=== PATIENT | female | born 1960 | race Caucasian/White ===

== ENCOUNTER → 2022-06-13 | Outpatient (CLI) | payer OTHER | LOC: M WUC 14:35 | PROVIDERS: ATTEND Internal Medicine | DX: R05.9 Cough, unspecified (principal); R06.00 Dyspnea, unspecified; R91.8 Other nonspecific abnormal finding of lung field ==

== ENCOUNTER → 2022-06-19 | Outpatient (CLI) | payer OTHER | LOC: M PLAIMG 10:24 | PROVIDERS: ATTEND Internal Medicine | DX: R06.00 Dyspnea, unspecified (principal); R05.9 Cough, unspecified; J47.9 Bronchiectasis, uncomplicated; R91.8 Other nonspecific abnormal finding of lung field; J84.10 Pulmonary fibrosis, unspecified ==

== ENCOUNTER → 2022-08-02 | Outpatient (REF) | payer OTHER | PROVIDERS: ATTEND Internal Medicine | DX: R09.81 Nasal congestion (principal); R06.02 Shortness of breath; Z20.822 Contact with and (suspected) exposure to COVID-19 ==

== ENCOUNTER 2022-10-11 12:36 | Inpatient (IN) | payer OTHER ==
[~2022-10-11] VITALS: Ht 144.8 cm; Wt 154.5 kg
[2022-10-11 00:29] VITALS: BP_SYST 130; BP_SYST 139; BP_SYST 141; BP_DIAS 59; BP_DIAS 71; BP_DIAS 94
[2022-10-11 13:40] LABS: BASO # 0.1 10^3/uL (0.0-0.2); BASO % 0.7 % (0.0-1.0); EOS # 0.4 10^3/uL (0.0-0.5); EOS % 3.2 % (0.0-3.0); HEMATOCRIT 44.1 % (36.0-47.0); HEMOGLOBIN 13.7 g/dl (12.0-15.5); LYMPH # 3.1 10^3/uL (1.5-5.0); MEAN CORPUSCULAR HEMOGLOBIN 26.9 pg (27.0-33.0); MEAN CORPUSCULAR HGB CONC 31.1 g/dl (32.0-36.5); MEAN CORPUSCULAR VOLUME 86.6 fl (80.0-96.0); MONO # 0.7 10^3/uL (0.0-0.8); MONO % 5.8 % (2.0-8.0); NEUTROPHILS # 7.9 10^3/uL (1.5-8.5); NEUTROPHILS % 63.9 % (36.0-66.0); PLATELET COUNT, AUTOMATED 231 10^3/uL (150-450); RED BLOOD COUNT 5.09 10^6/uL (4.00-5.40); WHITE BLOOD COUNT 12.3 10^3/uL (4.0-10.0)
[2022-10-11 14:06] LABS: LIPASE 21 U/L (12-53)
[2022-10-11 14:08] LABS: ALBUMIN 3.1 G/DL (3.2-5.2); ALKALINE PHOSPHATASE 75 U/L (46-116); ALT/SGPT 20 U/L (7.0-40); AST/SGOT 13 U/L (<34); BILIRUBIN,DIRECT < 0.1 MG/DL (<0.4); BILIRUBIN,TOTAL 0.2 MG/DL (0.3-1.2); TOTAL PROTEIN 6.9 G/DL (5.7-8.2)
[2022-10-11] MEDS ORDERED: NS 500 ML IV ONE (14:10)
[2022-10-11] MEDS ORDERED: DEXTROSE 50% 50ML SYRINGE IV STA (15:19)
[2022-10-11] MEDS ORDERED: ONDANSETRON 4MG 2ML VIAL IV ONE (15:20)
[2022-10-11] MEDS ORDERED: MOM 30ML SUSPENSION UDC PO PRN (17:15)
[2022-10-11] MEDS ORDERED: ACETAMINOPHEN TAB 650MG DOSE (2X325MG) PO PRN (17:15)
[2022-10-11] MEDS ORDERED: SYMB16INH INH (17:54)
[2022-10-11] MEDS ORDERED: MONT10TA97 PO (17:54)
[2022-10-11] MEDS ORDERED: OMEG10002 PO (17:54)
[2022-10-11] MEDS ORDERED: SUCR1TA PO (17:54)
[2022-10-11] MEDS ORDERED: VENTAER INH (17:54)
[2022-10-11] MEDS ORDERED: LOSA25TA13 PO (17:54)
[2022-10-11] MEDS ORDERED: NOVO1INJ4 SC (17:54)
[2022-10-11] MEDS ORDERED: METH-1165 PO (17:54)
[2022-10-11] MEDS ORDERED: GABA-1171 PO (17:54)
[2022-10-11] MEDS ORDERED: ATOR1TAB19 PO (17:54)
[2022-10-11] MEDS ORDERED: OMEP-173 PO (17:54)
[2022-10-11] MEDS ORDERED: PROBCAP14 PO (17:54)
[2022-10-11] MEDS ORDERED: NOVO1INJ18 SC (17:54)
[2022-10-11] MEDS ORDERED: MUCI600T31 PO (17:54)
[2022-10-11] MEDS ORDERED: TRAM50TA2 PO (17:54)
[2022-10-11] MEDS ORDERED: GNP625TA PO (17:54)
[2022-10-11] MEDS ORDERED: ONDA8TAB8 PO (17:54)
[2022-10-11] MEDS ORDERED: MM S100C PO (17:54)
[2022-10-11] MEDS ORDERED: NYST1CRE15 TOP (17:54)
[2022-10-11] MEDS ORDERED: ACET-683 PO (17:54)
[2022-10-11] MEDS ORDERED: SPIR-10 PO (17:54)
[2022-10-11] MEDS ORDERED: MECL-86 PO (17:54)
[2022-10-11] MEDS ORDERED: VITA500C24 PO (17:54)
[2022-10-11] MEDS ORDERED: CINN500C15 PO (17:54)
[2022-10-11] MEDS ORDERED: D3 M1CAP2 PO (17:54)
[2022-10-11] MEDS ORDERED: JARD1TAB PO (17:54)
[2022-10-11] MEDS ORDERED: BENA25CA4 PO (17:54)
[2022-10-11] MEDS ORDERED: CETI10CA2 PO (17:54)
[2022-10-11] MEDS ORDERED: MAGN400T35 PO (17:54)
[2022-10-11] MEDS ORDERED: FURO40TA2 PO (17:54)
[2022-10-11] MEDS ORDERED: HOME MED LIST COMPLETE! XX SCH (17:55)
[2022-10-11 18:31] LABS: INR 0.97; PARTIAL THROMBOPLASTIN TIME 23.7 SECONDS (24.8-34.2); PROTHROMBIN TIME 13.1 SECONDS (12.5-14.5)
[2022-10-11] MEDS ORDERED: MECLIZINE 25 MG TABLET PO PRN (19:15)
[2022-10-11] MEDS ORDERED: MYCOLOG CREAM 15GM (NYSTATIN/TRIAMCINOLONE) TOP PRN (19:15)
[2022-10-11] MEDS ORDERED: GLUCAGON INJ 1MG VIAL SC PRN (19:15)
[2022-10-11] MEDS ORDERED: diphenhydrAMINE 25MG CAP PO PRN (19:15)
[2022-10-11] MEDS ORDERED: GLUCOSE 4GM CHEW TABLET PO PRN (19:15)
[2022-10-11] MEDS ORDERED: methocarbamoL 750 MG TAB PO PRN (19:15)
[2022-10-11] MEDS ORDERED: guaiFENesin ER 600 MG TAB PO PRN (19:15)
[2022-10-11] MEDS ORDERED: ALBUTEROL 90 MCG/ACT 8GM HFA INHALER INH PRN (19:15)
[2022-10-11] MEDS ORDERED: DEXTROSE 50% 50ML SYRINGE IV PRN (19:15)
[2022-10-11] MEDS ORDERED: ONDANSETRON 4MG ORAL DISINTEGRATING TAB PO PRN (19:15)
[2022-10-11] MEDS ORDERED: OMEPRAZOLE 20MG CAP PO PRN (19:15)
[2022-10-11] MEDS ORDERED: HumuLIN N INSULIN (NovoLIN N) PER UNIT SC SCH (21:00)
[2022-10-11] MEDS ORDERED: INSULIN LISPRO (NovoLOG) PER UNIT SC SCH (21:00)
[2022-10-11] MEDS ORDERED: HumuLIN (NovoLIN)70/30 INSULIN INJ PER UNIT SC SCH (21:00)
[2022-10-11] MEDS ORDERED: GABAPENTIN 100 MG CAP PO SCH (21:00)
[2022-10-11 21:22] VITALS: BP 130/62; TEMP 97.7; O2SAT 98
[2022-10-11] MEDS: LR 1,000 ML IV SCH (22:04)
[2022-10-11] MEDS: DOCUSATE SODIUM 100MG CAPSULE PO SCH (22:05)
[2022-10-11] MEDS: traMADol 50 MG TAB PO PRN (22:07)
[2022-10-11 22:22] LABS: HEMATOCRIT 44.5 % (36.0-47.0); HEMOGLOBIN 13.5 g/dl (12.0-15.5)
[2022-10-12] MEDS ORDERED: PERCOCET 5MG/325MG TAB PO ONE
[2022-10-12 00:29] VITALS: BP_SYST 130; BP_SYST 139; BP_SYST 141; BP_DIAS 59; BP_DIAS 71; BP_DIAS 94
[2022-10-12] MEDS: LR 1,000 ML IV SCH (05:04)
[2022-10-12 05:43] VITALS: BP 131/52; TEMP 97.5; O2SAT 96
[2022-10-12 06:39] LABS: HEMATOCRIT 41.9 % (36.0-47.0); HEMOGLOBIN 12.7 g/dl (12.0-15.5); MEAN CORPUSCULAR HEMOGLOBIN 26.8 pg (27.0-33.0); MEAN CORPUSCULAR HGB CONC 30.3 g/dl (32.0-36.5); MEAN CORPUSCULAR VOLUME 88.6 fl (80.0-96.0); PLATELET COUNT, AUTOMATED 215 10^3/uL (150-450); RED BLOOD COUNT 4.73 10^6/uL (4.00-5.40); WHITE BLOOD COUNT 9.2 10^3/uL (4.0-10.0)
[2022-10-12 06:46] LABS: BLOOD UREA NITROGEN 16 MG/DL (9-23); CALCIUM LEVEL 7.9 MG/DL (8.3-10.6); CARBON DIOXIDE LEVEL 28 MMOL/L (20-31); CHLORIDE LEVEL 108 MMOL/L (98-107); GLOMERULAR FILTRATION RATE > 60.0 (>45); GLUCOSE, FASTING 177 MG/DL (74-106); POTASSIUM SERUM 4.6 MMOL/L (3.5-5.1); SODIUM LEVEL 140 MMOL/L (136-145)
[2022-10-12] MEDS: SYMBICORT 160/4.5MCG INHALER 6GM INH SCH ×2 (07:52→20:06)
[2022-10-12] MEDS: DOCUSATE SODIUM 100MG CAPSULE PO SCH (08:27)
[2022-10-12] MEDS: INSULIN LISPRO (NovoLOG) PER UNIT SC SCH ×3 (08:28→17:30)
[2022-10-12] MEDS ORDERED: MAGNESIUM OXIDE 400MG TAB (MAG-OX) PO SCH (09:00)
[2022-10-12] MEDS ORDERED: HumuLIN N INSULIN (NovoLIN N) PER UNIT SC SCH (09:00)
[2022-10-12] MEDS ORDERED: HumuLIN (NovoLIN)70/30 INSULIN INJ PER UNIT SC SCH (09:00)
[2022-10-12] MEDS ORDERED: ATORVASTATIN 10 MG TAB PO SCH (09:00)
[2022-10-12] MEDS ORDERED: OMEGA-3 1000MG CAPSULE PO SCH (09:00)
[2022-10-12] MEDS ORDERED: FIBER-CON 625 MG TAB PO SCH (09:00)
[2022-10-12] MEDS ORDERED: LIDOCAINE 5% (LIDODERM) PATCH TD SCH ×2 (09:00)
[2022-10-12] MEDS ORDERED: ASCORBIC ACID 500 MG TAB PO SCH (09:00)
[2022-10-12] MEDS ORDERED: MONTELUKAST 10 MG TAB PO SCH (09:00)
[2022-10-12] MEDS: traMADol 50 MG TAB PO PRN (09:33)
[2022-10-12] MEDS ORDERED: GOLYTELY SOLN 4000 ML BTL PO ONE (12:00)
[2022-10-12 14:00] VITALS: BP 145/68; TEMP 97.7; O2SAT 96
[2022-10-12] MEDS ORDERED: BISACODYL 10MG SUPP PR ONE (17:00)
[2022-10-12 21:00] VITALS: BP 144/66; TEMP 97.7; O2SAT 97
[2022-10-12 21:31] LABS: HEMATOCRIT 40.4 % (36.0-47.0); HEMOGLOBIN 12.4 g/dl (12.0-15.5)
[2022-10-12 22:00] VITALS: BP 141/71
[2022-10-13] MEDS ORDERED: ONDANSETRON 4MG 2ML VIAL IV PRN (00:45)
[2022-10-13 06:00] VITALS: BP 143/66; TEMP 97.5; O2SAT 97
[2022-10-13 06:23] LABS: HEMATOCRIT 40.3 % (36.0-47.0); HEMOGLOBIN 12.1 g/dl (12.0-15.5); MEAN CORPUSCULAR HEMOGLOBIN 26.5 pg (27.0-33.0); MEAN CORPUSCULAR VOLUME 88.4 fl (80.0-96.0); PLATELET COUNT, AUTOMATED 190 10^3/uL (150-450); RED BLOOD COUNT 4.56 10^6/uL (4.00-5.40); WHITE BLOOD COUNT 8.9 10^3/uL (4.0-10.0)
[2022-10-13 06:46] LABS: BLOOD UREA NITROGEN 10 MG/DL (9-23); CALCIUM LEVEL 8.5 MG/DL (8.3-10.6); CARBON DIOXIDE LEVEL 29 MMOL/L (20-31); CHLORIDE LEVEL 106 MMOL/L (98-107); CREATININE FOR GFR 0.65 MG/DL (0.55-1.30); GLOMERULAR FILTRATION RATE > 60.0 (>45); GLUCOSE, FASTING 204 MG/DL (74-106); POTASSIUM SERUM 4.4 MMOL/L (3.5-5.1); SODIUM LEVEL 141 MMOL/L (136-145)
[2022-10-13] MEDS ORDERED: MOM 30ML SUSPENSION UDC PO PRN (08:15)
[2022-10-13] MEDS ORDERED: ACETAMINOPHEN TAB 650MG DOSE (2X325MG) PO PRN (08:15)
[2022-10-13] MEDS ORDERED: MYCOLOG CREAM 15GM (NYSTATIN/TRIAMCINOLONE) TOP PRN (08:15)
[2022-10-13] MEDS ORDERED: guaiFENesin ER 600 MG TAB PO PRN (08:15)
[2022-10-13] MEDS ORDERED: ALBUTEROL 90 MCG/ACT 8GM HFA INHALER INH PRN (08:15)
[2022-10-13] MEDS ORDERED: methocarbamoL 750 MG TAB PO PRN (08:15)
[2022-10-13] MEDS ORDERED: OMEPRAZOLE 20MG CAP PO PRN (08:15)
[2022-10-13] MEDS ORDERED: MECLIZINE 25 MG TABLET PO PRN (08:15)
[2022-10-13] MEDS ORDERED: GLUCOSE 4GM CHEW TABLET PO PRN (08:20)
[2022-10-13] MEDS ORDERED: DEXTROSE 50% 50ML SYRINGE IV PRN (08:20)
[2022-10-13] MEDS ORDERED: GLUCAGON INJ 1MG VIAL SC PRN (08:20)
[2022-10-13] MEDS ORDERED: ONDANSETRON 4MG ORAL DISINTEGRATING TAB PO PRN (08:30)
[2022-10-13] MEDS: SYMBICORT 160/4.5MCG INHALER 6GM INH SCH ×2 (08:33→20:00)
[2022-10-13] MEDS: DOCUSATE SODIUM 100MG CAPSULE PO SCH ×2 (09:00→21:00)
[2022-10-13] MEDS: MAGNESIUM OXIDE 400MG TAB (MAG-OX) PO SCH (09:00)
[2022-10-13] MEDS: MONTELUKAST 10 MG TAB PO SCH (09:00)
[2022-10-13] MEDS: ATORVASTATIN 10 MG TAB PO SCH (09:00)
[2022-10-13] MEDS: FIBER-CON 625 MG TAB PO SCH (09:00)
[2022-10-13] MEDS: ASCORBIC ACID 500 MG TAB PO SCH (09:00)
[2022-10-13] MEDS: OMEGA-3 1000MG CAPSULE PO SCH (09:00)
[2022-10-13] MEDS: LIDOCAINE 5% (LIDODERM) PATCH TD SCH ×2 (09:44→09:45)
[2022-10-13] MEDS: ONDANSETRON 4MG ORAL DISINTEGRATING TAB PO PRN ×3 (09:57→21:31)
[2022-10-13] MEDS ORDERED: FLUBLOK(EGG FREE)(QUAD)INFLUENZA VACC 0.5ML SYRINGE 18YRS & OLDER As Ordered ONE (10:52)
[2022-10-13] MEDS: HumuLIN (NovoLIN)70/30 INSULIN INJ PER UNIT SC SCH ×2 (11:54→21:59)
[2022-10-13] MEDS: INSULIN LISPRO (NovoLOG) PER UNIT SC SCH ×3 (11:54→21:00)
[2022-10-13 14:00] VITALS: BP 141/68; TEMP 97.5; O2SAT 97
[2022-10-13] MEDS ORDERED: LIDOCAINE 2% 100MG/5ML SDV (FOR ANES.) As Ordered ONE (19:56)
[2022-10-13] MEDS ORDERED: propofoL 200 MG/20 ML VIAL As Ordered ONE ×2 (19:56→20:03)
[2022-10-13 21:00] VITALS: BP 142/72; TEMP 97.7; O2SAT 92
[2022-10-13] MEDS: GABAPENTIN 100 MG CAP PO SCH (21:00)
[2022-10-13 21:30] VITALS: BP 113/71; TEMP 97.9; O2SAT 92
[2022-10-13 22:00] VITALS: BP 122/70; TEMP 98; O2SAT 94
[2022-10-13 23:00] VITALS: BP 154/76; TEMP 97.9; O2SAT 92
[2022-10-14] VITALS (8 sets, daily range): BP systolic 133–156; BP diastolic 66–76; TEMP 97.7–98.7; O2SAT 91–95
[2022-10-14] MEDS ORDERED: SODIUM CHLORIDE NASAL 0.65% SPRAY BTL (OCEAN) PRN (00:55)
[2022-10-14] MEDS: diphenhydrAMINE 25MG CAP PO PRN (01:30)
[2022-10-14 06:09] LABS: HEMATOCRIT 41.1 % (36.0-47.0); HEMOGLOBIN 12.3 g/dl (12.0-15.5); MEAN CORPUSCULAR HEMOGLOBIN 26.6 pg (27.0-33.0); MEAN CORPUSCULAR HGB CONC 29.9 g/dl (32.0-36.5); PLATELET COUNT, AUTOMATED 187 10^3/uL (150-450); RED BLOOD COUNT 4.62 10^6/uL (4.00-5.40); WHITE BLOOD COUNT 10.7 10^3/uL (4.0-10.0)
[2022-10-14 06:32] LABS: BLOOD UREA NITROGEN 6 MG/DL (9-23); CALCIUM LEVEL 8.6 MG/DL (8.3-10.6); CARBON DIOXIDE LEVEL 28 MMOL/L (20-31); CHLORIDE LEVEL 107 MMOL/L (98-107); CREATININE FOR GFR 0.65 MG/DL (0.55-1.30); GLOMERULAR FILTRATION RATE > 60.0 (>45); GLUCOSE, FASTING 144 MG/DL (74-106); SODIUM LEVEL 141 MMOL/L (136-145)
[2022-10-14] MEDS: SYMBICORT 160/4.5MCG INHALER 6GM INH SCH ×3 (08:00→19:16)
[2022-10-14] MEDS: FIBER-CON 625 MG TAB PO SCH (09:31)
[2022-10-14] MEDS: MONTELUKAST 10 MG TAB PO SCH (09:32)
[2022-10-14] MEDS: MAGNESIUM OXIDE 400MG TAB (MAG-OX) PO SCH (09:32)
[2022-10-14] MEDS: OMEGA-3 1000MG CAPSULE PO SCH (09:32)
[2022-10-14] MEDS: DOCUSATE SODIUM 100MG CAPSULE PO SCH ×2 (09:32→21:39)
[2022-10-14] MEDS: ATORVASTATIN 10 MG TAB PO SCH (09:32)
[2022-10-14] MEDS: INSULIN LISPRO (NovoLOG) PER UNIT SC SCH ×4 (09:32→21:40)
[2022-10-14] MEDS: ASCORBIC ACID 500 MG TAB PO SCH (09:32)
[2022-10-14] MEDS: LIDOCAINE 5% (LIDODERM) PATCH TD SCH ×2 (09:33)
[2022-10-14] MEDS: HumuLIN (NovoLIN)70/30 INSULIN INJ PER UNIT SC SCH ×2 (09:33→21:40)
[2022-10-14] MEDS: traMADol 50 MG TAB PO PRN (12:08)
[2022-10-14] MEDS: ONDANSETRON 4MG ORAL DISINTEGRATING TAB PO PRN (12:09)
[2022-10-14] MEDS: SPIRONOLACTONE 12.5MG PER 1/2 TABLET PO SCH (12:09)
[2022-10-14] MEDS: SUCRALFATE 1 GM TAB PO SCH ×2 (12:09→17:48)
[2022-10-14] MEDS: LOSARTAN 25 MG TAB PO SCH (12:09)
[2022-10-14] MEDS: FUROSEMIDE 40 MG TAB PO SCH ×2 (12:09→20:08)
[2022-10-14] MEDS: RIVAROXABAN 10MG TAB (XARELTO) PO SCH ×2 (17:48→17:50)
[2022-10-14] MEDS: GABAPENTIN 100 MG CAP PO SCH (20:08)
[2022-10-15 05:28] VITALS: BP 135/72; TEMP 97.7; O2SAT 91
[2022-10-15 06:48] LABS: HEMATOCRIT 39.4 % (36.0-47.0); HEMOGLOBIN 11.9 g/dl (12.0-15.5); MEAN CORPUSCULAR HEMOGLOBIN 26.7 pg (27.0-33.0); MEAN CORPUSCULAR HGB CONC 30.2 g/dl (32.0-36.5); MEAN CORPUSCULAR VOLUME 88.5 fl (80.0-96.0); PLATELET COUNT, AUTOMATED 171 10^3/uL (150-450); RED BLOOD COUNT 4.45 10^6/uL (4.00-5.40); WHITE BLOOD COUNT 10.6 10^3/uL (4.0-10.0)
[2022-10-15 07:17] LABS: BLOOD UREA NITROGEN 9 MG/DL (9-23); CALCIUM LEVEL 8.1 MG/DL (8.3-10.6); CARBON DIOXIDE LEVEL 29 MMOL/L (20-31); CHLORIDE LEVEL 107 MMOL/L (98-107); CREATININE FOR GFR 0.67 MG/DL (0.55-1.30); GLOMERULAR FILTRATION RATE > 60.0 (>45); GLUCOSE, FASTING 221 MG/DL (74-106); POTASSIUM SERUM 3.9 MMOL/L (3.5-5.1); SODIUM LEVEL 143 MMOL/L (136-145)
[2022-10-15] MEDS: SYMBICORT 160/4.5MCG INHALER 6GM INH SCH ×2 (07:22→20:13)
[2022-10-15] MEDS: HumuLIN (NovoLIN)70/30 INSULIN INJ PER UNIT SC SCH ×2 (07:52→21:50)
[2022-10-15] MEDS: MAGNESIUM OXIDE 400MG TAB (MAG-OX) PO SCH (07:53)
[2022-10-15] MEDS: MONTELUKAST 10 MG TAB PO SCH (07:53)
[2022-10-15] MEDS: INSULIN LISPRO (NovoLOG) PER UNIT SC SCH ×4 (07:53→21:49)
[2022-10-15] MEDS: FIBER-CON 625 MG TAB PO SCH (07:53)
[2022-10-15] MEDS: SUCRALFATE 1 GM TAB PO SCH ×3 (07:53→17:16)
[2022-10-15] MEDS: DOCUSATE SODIUM 100MG CAPSULE PO SCH ×2 (07:53→21:46)
[2022-10-15] MEDS: OMEGA-3 1000MG CAPSULE PO SCH (07:54)
[2022-10-15] MEDS: ATORVASTATIN 10 MG TAB PO SCH (07:54)
[2022-10-15] MEDS: SPIRONOLACTONE 12.5MG PER 1/2 TABLET PO SCH (07:54)
[2022-10-15] MEDS: LOSARTAN 25 MG TAB PO SCH (07:54)
[2022-10-15] MEDS: FUROSEMIDE 40 MG TAB PO SCH ×2 (07:54→14:13)
[2022-10-15] MEDS: ASCORBIC ACID 500 MG TAB PO SCH (07:54)
[2022-10-15] MEDS: LIDOCAINE 5% (LIDODERM) PATCH TD SCH ×2 (07:55)
[2022-10-15] MEDS: RIVAROXABAN 10MG TAB (XARELTO) PO SCH (17:16)
[2022-10-15] MEDS: GABAPENTIN 100 MG CAP PO SCH (21:00)
[2022-10-15] MEDS: traMADol 50 MG TAB PO PRN (21:48)
[2022-10-16 06:00] VITALS: BP 156/70; TEMP 96.7; O2SAT 97
[2022-10-16 06:09] LABS: HEMATOCRIT 39.3 % (36.0-47.0); MEAN CORPUSCULAR HGB CONC 30.5 g/dl (32.0-36.5); MEAN CORPUSCULAR VOLUME 88.5 fl (80.0-96.0); PLATELET COUNT, AUTOMATED 199 10^3/uL (150-450); RED BLOOD COUNT 4.44 10^6/uL (4.00-5.40); WHITE BLOOD COUNT 10.9 10^3/uL (4.0-10.0)
[2022-10-16 06:39] LABS: BLOOD UREA NITROGEN 10 MG/DL (9-23); CALCIUM LEVEL 8.5 MG/DL (8.3-10.6); CARBON DIOXIDE LEVEL 30 MMOL/L (20-31); CHLORIDE LEVEL 105 MMOL/L (98-107); CREATININE FOR GFR 0.64 MG/DL (0.55-1.30); GLOMERULAR FILTRATION RATE > 60.0 (>45); GLUCOSE, FASTING 170 MG/DL (74-106); POTASSIUM SERUM 3.6 MMOL/L (3.5-5.1); SODIUM LEVEL 140 MMOL/L (136-145)
[2022-10-16] MEDS: traMADol 50 MG TAB PO PRN ×2 (06:47→14:08)
[2022-10-16] MEDS: SYMBICORT 160/4.5MCG INHALER 6GM INH SCH ×2 (07:58→20:42)
[2022-10-16] MEDS: OMEGA-3 1000MG CAPSULE PO SCH (08:39)
[2022-10-16] MEDS: FUROSEMIDE 40 MG TAB PO SCH ×2 (08:39→14:08)
[2022-10-16] MEDS: ATORVASTATIN 10 MG TAB PO SCH (08:39)
[2022-10-16] MEDS: DOCUSATE SODIUM 100MG CAPSULE PO SCH ×2 (08:39→21:24)
[2022-10-16] MEDS: MAGNESIUM OXIDE 400MG TAB (MAG-OX) PO SCH (08:39)
[2022-10-16] MEDS: SUCRALFATE 1 GM TAB PO SCH ×3 (08:39→16:44)
[2022-10-16] MEDS: MONTELUKAST 10 MG TAB PO SCH (08:40)
[2022-10-16] MEDS: LOSARTAN 25 MG TAB PO SCH (08:40)
[2022-10-16] MEDS: ASCORBIC ACID 500 MG TAB PO SCH (08:41)
[2022-10-16] MEDS: SPIRONOLACTONE 12.5MG PER 1/2 TABLET PO SCH (08:41)
[2022-10-16] MEDS: FIBER-CON 625 MG TAB PO SCH (08:41)
[2022-10-16] MEDS: INSULIN LISPRO (NovoLOG) PER UNIT SC SCH ×4 (08:43→21:26)
[2022-10-16] MEDS: LIDOCAINE 5% (LIDODERM) PATCH TD SCH ×2 (08:44)
[2022-10-16] MEDS: HumuLIN (NovoLIN)70/30 INSULIN INJ PER UNIT SC SCH ×2 (08:44→21:25)
[2022-10-16] MEDS: ONDANSETRON 4MG ORAL DISINTEGRATING TAB PO PRN (16:44)
[2022-10-16] MEDS: RIVAROXABAN 10MG TAB (XARELTO) PO SCH (18:00)
[2022-10-16] MEDS: GABAPENTIN 100 MG CAP PO SCH (21:00)
[2022-10-16] MEDS: diphenhydrAMINE 25MG CAP PO PRN (21:24)
[2022-10-17] MEDS: traMADol 50 MG TAB PO PRN (04:16)
[2022-10-17 05:41] VITALS: BP 106/60; TEMP 97.3; O2SAT 96
[2022-10-17] MEDS: SYMBICORT 160/4.5MCG INHALER 6GM INH SCH (07:51)
[2022-10-17 09:11] VITALS: BP 106/60
[2022-10-17] MEDS: FIBER-CON 625 MG TAB PO SCH (09:11)
[2022-10-17] MEDS: LOSARTAN 25 MG TAB PO SCH (09:11)
[2022-10-17] MEDS: INSULIN LISPRO (NovoLOG) PER UNIT SC SCH ×2 (09:12→12:00)
[2022-10-17] MEDS: FUROSEMIDE 40 MG TAB PO SCH (09:13)
[2022-10-17] MEDS: OMEGA-3 1000MG CAPSULE PO SCH (09:13)
[2022-10-17] MEDS: SPIRONOLACTONE 12.5MG PER 1/2 TABLET PO SCH (09:14)
[2022-10-17] MEDS: SUCRALFATE 1 GM TAB PO SCH ×2 (09:14→12:00)
[2022-10-17] MEDS: MONTELUKAST 10 MG TAB PO SCH (09:14)
[2022-10-17] MEDS: DOCUSATE SODIUM 100MG CAPSULE PO SCH (09:14)
[2022-10-17] MEDS: ATORVASTATIN 10 MG TAB PO SCH (09:14)
[2022-10-17] MEDS: MAGNESIUM OXIDE 400MG TAB (MAG-OX) PO SCH (09:15)
[2022-10-17] MEDS: ASCORBIC ACID 500 MG TAB PO SCH (09:15)
[2022-10-17] MEDS: LIDOCAINE 5% (LIDODERM) PATCH TD SCH ×2 (09:26)
[2022-10-17] MEDS: HumuLIN (NovoLIN)70/30 INSULIN INJ PER UNIT SC SCH (09:26)
== END 2022-10-17 12:09 | DRG 378 ==
LOC: M ED 12:36 → M ED INP 17:13 → M MSPAV 21:24 → UNDODISIN 10-12 21:11
PROVIDERS: ADMIT Student in an Organized Health Care Education/Training Program; ATTEND Internal Medicine
PROC: 0DBN7ZX Excision of Sigmoid Colon, Via Natural or Artificial Opening, Diagnostic (ICD-10-PCS; principal; 2022-10-13 18:30)
DX: K62.5 Hemorrhage of anus and rectum (principal); J96.11 Chronic respiratory failure with hypoxia; E78.5 Hyperlipidemia, unspecified; E66.9 Obesity, unspecified; I11.0 Hypertensive heart disease with heart failure; J45.909 Unspecified asthma, uncomplicated; E11.649 Type 2 diabetes mellitus with hypoglycemia without coma; I50.9 Heart failure, unspecified; Z79.4 Long term (current) use of insulin; M19.90 Unspecified osteoarthritis, unspecified site; E11.51 Type 2 diabetes mellitus with diabetic peripheral angiopathy without gangrene; Z99.81 Dependence on supplemental oxygen; F43.10 Post-traumatic stress disorder, unspecified; G43.909 Migraine, unspecified, not intractable, without status migrainosus; Z95.2 Presence of prosthetic heart valve; N93.9 Abnormal uterine and vaginal bleeding, unspecified; Z79.899 Other long term (current) drug therapy; Z88.0 Allergy status to penicillin; D12.5 Benign neoplasm of sigmoid colon; K64.8 Other hemorrhoids; I86.8 Varicose veins of other specified sites

== ENCOUNTER → 2022-11-15 | Outpatient (CLI) | payer OTHER ==
[~2022-11-15] MED LIST: ACET-683 PO; ATOR1TAB19 PO; BENA25CA4 PO; CETI10CA2 PO; CINN500C15 PO; D3 M1CAP2 PO; FURO40TA2 PO; GABA-1171 PO; GNP625TA PO; JARD1TAB PO; LOSA25TA13 PO; MAGN400T35 PO; MECL-86 PO; METH-1165 PO; MM S100C PO; MONT10TA97 PO; MUCI600T31 PO; NOVO1INJ18 SC; NOVO1INJ4 SC; NYST1CRE15 TOP; OMEG10002 PO; OMEP-173 PO; ONDA8TAB8 PO; PROBCAP14 PO; SPIR-10 PO; SUCR1TA PO; SYMB16INH INH; TRAM50TA2 PO; VENTAER INH; VITA500C24 PO
== END ==
LOC: M WHC 10:58
PROVIDERS: ATTEND Obstetrics & Gynecology
DX: N95.0 Postmenopausal bleeding (principal); D25.1 Intramural leiomyoma of uterus; N88.8 Other specified noninflammatory disorders of cervix uteri

== ENCOUNTER 2024-05-19 15:57 | Emergency (ER) | payer MEDICARE, OTHER ==
[~2024-05-19] VITALS: Ht 177.8 cm; Wt 132.3 kg
[~2024-05-19 15:57] MED LIST changes: +ONDA-284 PO; -ONDA8TAB8 PO
[2024-05-19 17:27] VITALS: TEMP 100
[2024-05-19 17:52] LABS: BASO # 0.1 10^3/uL (0.0-0.2); BASO % 1.1 % (0.0-1.0); EOS # 0.1 10^3/uL (0.0-0.5); EOS % 1.3 % (0.0-3.0); HEMOGLOBIN 14.2 g/dl (12.0-15.5); LYMPH # 1.4 10^3/uL (1.5-5.0); LYMPH % 17.9 % (24.0-44.0); MEAN CORPUSCULAR HGB CONC 30.9 g/dl (32.0-36.5); MEAN CORPUSCULAR VOLUME 84.2 fl (80.0-96.0); MONO # 0.6 10^3/uL (0.0-0.8); MONO % 7.3 % (2.0-8.0); NEUTROPHILS # 5.3 10^3/uL (1.5-8.5); NEUTROPHILS % 69.9 % (36.0-66.0); PLATELET COUNT, AUTOMATED 217 10^3/uL (150-450); RED BLOOD COUNT 5.46 10^6/uL (4.00-5.40); WHITE BLOOD COUNT 7.5 10^3/uL (4.0-10.0)
[2024-05-19 18:15] LABS: BLOOD UREA NITROGEN 19 MG/DL (9-23); CARBON DIOXIDE LEVEL 26 MMOL/L (20-31); CHLORIDE LEVEL 107 MMOL/L (98-107); CREATININE FOR GFR 0.59 MG/DL (0.55-1.30); GLOMERULAR FILTRATION RATE > 60.0 (>45); GLUCOSE, FASTING 129 MG/DL (74-106); POTASSIUM SERUM 4.4 MMOL/L (3.5-5.1); SODIUM LEVEL 142 MMOL/L (136-145)
[2024-05-19 18:18] LABS: INR 1.04; PARTIAL THROMBOPLASTIN TIME 26.1 SECONDS (24.8-34.2); PROTHROMBIN TIME 13.9 SECONDS (12.5-14.5)
[2024-05-19 18:26] LABS: LIPASE 18 U/L (12-53)
[2024-05-19 18:28] LABS: ALBUMIN 2.8 G/DL (3.2-5.2); ALKALINE PHOSPHATASE 60 U/L (35-104); ALT/SGPT 17 U/L (7.0-40); AST/SGOT 16 U/L (<34); BILIRUBIN,DIRECT < 0.1 MG/DL (<0.4); BILIRUBIN,TOTAL 0.3 MG/DL (0.3-1.2)
[2024-05-19] MEDS ORDERED: PROC1AER16 PR (20:27)
[2024-05-19 20:30] VITALS: BP 133/63; O2SAT 97
== END 2024-05-19 21:04 | disposition home or self-care (01) ==
LOC: M ED 15:57
DX: K62.5 Hemorrhage of anus and rectum (principal); I11.0 Hypertensive heart disease with heart failure; E11.9 Type 2 diabetes mellitus without complications; K64.9 Unspecified hemorrhoids; J44.9 Chronic obstructive pulmonary disease, unspecified; K21.9 Gastro-esophageal reflux disease without esophagitis; F41.9 Anxiety disorder, unspecified; F32.9 Major depressive disorder, single episode, unspecified; Z79.4 Long term (current) use of insulin; Z79.899 Other long term (current) drug therapy; Z88.0 Allergy status to penicillin; Z88.1 Allergy status to other antibiotic agents; Z88.8 Allergy status to other drugs, medicaments and biological substances; Z88.3 Allergy status to other anti-infective agents; Z91.013 Allergy to seafood

== ENCOUNTER 2024-05-24 16:15 | Inpatient (IN) | payer MEDICARE ==
[~2024-05-24] VITALS: Ht 147.3 cm; Wt 137.1 kg
[~2024-05-24 16:15] MED LIST changes: +PROC1AER16 PR
[2024-05-24 19:16] LABS: BASO # 0.1 10^3/uL (0.0-0.2); BASO % 0.7 % (0.0-1.0); EOS # 0.1 10^3/uL (0.0-0.5); EOS % 0.7 % (0.0-3.0); HEMATOCRIT 41.1 % (36.0-47.0); HEMOGLOBIN 13.1 g/dl (12.0-15.5); LYMPH % 11.3 % (24.0-44.0); MEAN CORPUSCULAR HEMOGLOBIN 26.1 pg (27.0-33.0); MEAN CORPUSCULAR HGB CONC 31.9 g/dl (32.0-36.5); MEAN CORPUSCULAR VOLUME 81.9 fl (80.0-96.0); MONO # 0.5 10^3/uL (0.0-0.8); MONO % 5.8 % (2.0-8.0); NEUTROPHILS # 6.8 10^3/uL (1.5-8.5); NEUTROPHILS % 79.3 % (36.0-66.0); PLATELET COUNT, AUTOMATED 229 10^3/uL (150-450); RED BLOOD COUNT 5.02 10^6/uL (4.00-5.40); WHITE BLOOD COUNT 8.6 10^3/uL (4.0-10.0)
[2024-05-24 19:31] LABS: INR 1.02; PARTIAL THROMBOPLASTIN TIME 26.3 SECONDS (24.8-34.2); PROTHROMBIN TIME 13.7 SECONDS (12.5-14.5)
[2024-05-24] MEDS: ONDANSETRON 4MG 2ML VIAL IV ONE (19:39)
[2024-05-24 19:43] LABS: LIPASE 20 U/L (12-53)
[2024-05-24 19:45] LABS: ALBUMIN 2.9 G/DL (3.2-5.2); ALKALINE PHOSPHATASE 63 U/L (35-104); ALT/SGPT 20 U/L (7.0-40); AST/SGOT 22 U/L (<34); BILIRUBIN,DIRECT 0.1 MG/DL (<0.4); BILIRUBIN,TOTAL 0.4 MG/DL (0.3-1.2); BLOOD UREA NITROGEN 14 MG/DL (9-23); CALCIUM LEVEL 8.8 MG/DL (8.3-10.6); CARBON DIOXIDE LEVEL 28 MMOL/L (20-31); CHLORIDE LEVEL 104 MMOL/L (98-107); CREATININE FOR GFR 0.53 MG/DL (0.55-1.30); GLOMERULAR FILTRATION RATE > 60.0 (>45); GLUCOSE, FASTING 90 MG/DL (74-106); SODIUM LEVEL 142 MMOL/L (136-145); TOTAL PROTEIN 6.9 G/DL (5.7-8.2)
[2024-05-24] MEDS: fentaNYL 100 MCG/2 ML INJECTION IV PRN (19:54)
[2024-05-24] MEDS: NORCO, ANEXSIA 5/325MG TABLET (HYDROcodone/ACETAMINOPHEN) PO ONE (22:54)
[2024-05-24 23:15] VITALS: O2SAT 98
[2024-05-25 01:21] LABS: APPEARANCE, URINE CLEAR (CLEAR); BACTERIA, URINE AUTO 1+ (NEGATIVE); BILIRUBIN, URINE AUTO NEGATIVE (NEGATIVE); BLOOD, URINE BLOOD NEGATIVE (NEGATIVE); COLOR, URINE YELLOW (YELLOW); GLUCOSE, URINE (UA) AUTO 3+ mg/dL (NEGATIVE); KETONE, URINE AUTO NEGATIVE (NEGATIVE); LEUKOCYTE ESTERASE, URINE AUTO NEGATIVE (NEGATIVE); NITRITE, URINE AUTO NEGATIVE (NEGATIVE); PROTEIN, URINE AUTO NEGATIVE (NEGATIVE); RBC, URINE AUTO 0 /HPF (0-3); SPECIFIC GRAVITY URINE AUTO 1.016 (1.002-1.035); SQUAMOUS EPITHELIAL CELL UR AU 0 /HPF (0-6); UROBILINOGEN, URINE AUTO 0.2 mg/dL (0.0-2.0); WBC, URINE AUTO 0 /HPF (0-3)
[2024-05-25] MEDS ORDERED: ACETAMINOPHEN 325 MG TAB PO PRN (01:25)
[2024-05-25] MEDS ORDERED: MOM 30ML SUSPENSION UDC PO PRN (01:25)
[2024-05-25] MEDS ORDERED: GLUCOSE 4 GM CHEW PO PRN (02:00)
[2024-05-25] MEDS ORDERED: DEXTROSE 50% 50ML SYRINGE IV PRN (02:00)
[2024-05-25] MEDS ORDERED: GLUCAGON INJ 1MG VIAL SC PRN (02:00)
[2024-05-25 03:51] VITALS: BP 103/55; TEMP 97.9; O2SAT 88
[2024-05-25] MEDS ORDERED: KP F1200 PO (06:00)
[2024-05-25] MEDS ORDERED: MAGN100T PO (06:00)
[2024-05-25] MEDS ORDERED: EQL0.65S NARES (06:05)
[2024-05-25] MEDS ORDERED: HUMU70IN SC ×3 (06:11)
[2024-05-25] MEDS ORDERED: BUDE2SUS3 INH (06:17)
[2024-05-25] MEDS ORDERED: LEVA1.2526 INH (06:17)
[2024-05-25] MEDS ORDERED: CLIN1LOT TOP (06:19)
[2024-05-25] MEDS ORDERED: L-AR1000 PO (06:20)
[2024-05-25] MEDS ORDERED: THERTAB52 PO (06:20)
[2024-05-25] MEDS ORDERED: LIDO5DIS41 TOP (06:22)
[2024-05-25] MEDS ORDERED: HOME MED LIST COMPLETE! XX SCH (06:30)
[2024-05-25 06:56] LABS: HEMOGLOBIN 12.3 g/dl (12.0-15.5); MEAN CORPUSCULAR HEMOGLOBIN 26.1 pg (27.0-33.0); MEAN CORPUSCULAR HGB CONC 30.8 g/dl (32.0-36.5); MEAN CORPUSCULAR VOLUME 84.9 fl (80.0-96.0); PLATELET COUNT, AUTOMATED 207 10^3/uL (150-450); RED BLOOD COUNT 4.71 10^6/uL (4.00-5.40); WHITE BLOOD COUNT 6.6 10^3/uL (4.0-10.0)
[2024-05-25 07:18] LABS: BLOOD UREA NITROGEN 14 MG/DL (9-23); CARBON DIOXIDE LEVEL 29 MMOL/L (20-31); CHLORIDE LEVEL 104 MMOL/L (98-107); GLOMERULAR FILTRATION RATE > 60.0 (>45); GLUCOSE, FASTING 324 MG/DL (74-106); POTASSIUM SERUM 3.7 MMOL/L (3.5-5.1); SODIUM LEVEL 142 MMOL/L (136-145)
[2024-05-25] MEDS ORDERED: MYCOLOG CREAM 15GM (NYSTATIN/TRIAMCINOLONE) TOP PRN (07:30)
[2024-05-25] MEDS ORDERED: SODIUM CHLORIDE NASAL 0.65% SPRAY BTL (OCEAN) PRN (07:30)
[2024-05-25] MEDS: INSULIN LISPRO (NovoLOG) PER UNIT SC SCH ×2 (08:08→21:29)
[2024-05-25 08:10] LABS: BASO % 0.5 % (0.0-1.0); EOS # 0.1 10^3/uL (0.0-0.5); EOS % 1.6 % (0.0-3.0); LYMPH # 1.2 10^3/uL (1.5-5.0); LYMPH % 18.9 % (24.0-44.0); MONO # 0.5 10^3/uL (0.0-0.8); MONO % 7.9 % (2.0-8.0); NEUTROPHILS # 4.4 10^3/uL (1.5-8.5); NEUTROPHILS % 68.1 % (36.0-66.0)
[2024-05-25 08:22] LABS: ERYTHROCYTE SEDIMENTATION RATE 59 mm/hr (0-30)
[2024-05-25 08:25] LABS: C REACTIVE PROTEIN QUANTITATIV 3.96 MG/DL (<1.0)
[2024-05-25 08:32] LABS: PROCALCITONIN 0.14 ng/ml
[2024-05-25] MEDS: NYSTATIN 100,000 UNITS/GM TOPICAL PWD 15GM TOP SCH (09:00)
[2024-05-25] MEDS ORDERED: LOSARTAN 25 MG TAB PO SCH (09:00)
[2024-05-25] MEDS ORDERED: HEPARIN SOD (PORCINE) 5000UNITS/ML 1ML VIAL/SYRINGE SC SCH (09:00)
[2024-05-25] MEDS ORDERED: FUROSEMIDE 40 MG TAB PO SCH (09:00)
[2024-05-25] MEDS: ATORVASTATIN 10 MG TAB PO SCH (09:07)
[2024-05-25] MEDS: OMEPRAZOLE 20MG CAP PO SCH (09:07)
[2024-05-25] MEDS: SUCRALFATE 1 GM TAB PO SCH (09:07)
[2024-05-25] MEDS: NORCO, ANEXSIA 5/325MG TABLET (HYDROcodone/ACETAMINOPHEN) PO PRN (09:07)
[2024-05-25] MEDS: MULTIVITAMINS/MINERALS THERAP 1 TAB PO SCH (09:07)
[2024-05-25] MEDS: VITAMIN D 1,000 INTERNATIONAL UNITS TABLET PO SCH (09:07)
[2024-05-25] MEDS: CETIRIZINE (ZyrTEC) 10 MG TAB PO SCH (09:07)
[2024-05-25] MEDS: ASCORBIC ACID 500 MG TAB PO SCH (09:07)
[2024-05-25] MEDS: MONTELUKAST 10 MG TAB PO SCH (09:07)
[2024-05-25] MEDS: LIDOCAINE 5% (LIDODERM) PATCH TOP SCH (09:08)
[2024-05-25] MEDS: LEVALBUTEROL 1.25MG 0.5ML CONCENTRATE NEB INH SCH (09:27)
[2024-05-25 12:00] VITALS: BP 111/71; TEMP 97.5; O2SAT 93
[2024-05-25] MEDS: PROCTOFOAM-HC 1% FOAM 10GM CAN PR SCH (12:09)
[2024-05-25] MEDS: BUDESONIDE 180MCG INHALER (PULMICORT FLEXHALER) INH SCH (15:07)
[2024-05-25] MEDS: ONDANSETRON 4MG 2ML VIAL IV PRN (17:39)
[2024-05-25 20:00] VITALS: BP 103/53; TEMP 96.8; O2SAT 92
[2024-05-25] MEDS: methocarbamoL 750 MG TAB PO SCH (22:06)
[2024-05-26 04:00] VITALS: BP 115/64; TEMP 97.9; O2SAT 92
[2024-05-26 06:01] LABS: BASO # 0.1 10^3/uL (0.0-0.2); BASO % 0.8 % (0.0-1.0); EOS # 0.4 10^3/uL (0.0-0.5); EOS % 5.2 % (0.0-3.0); HEMATOCRIT 40.3 % (36.0-47.0); HEMOGLOBIN 11.8 g/dl (12.0-15.5); LYMPH # 1.5 10^3/uL (1.5-5.0); LYMPH % 20.3 % (24.0-44.0); MEAN CORPUSCULAR HEMOGLOBIN 25.3 pg (27.0-33.0); MEAN CORPUSCULAR HGB CONC 29.3 g/dl (32.0-36.5); MEAN CORPUSCULAR VOLUME 86.3 fl (80.0-96.0); MONO # 0.7 10^3/uL (0.0-0.8); MONO % 8.6 % (2.0-8.0); NEUTROPHILS # 4.6 10^3/uL (1.5-8.5); NEUTROPHILS % 60.9 % (36.0-66.0); PLATELET COUNT, AUTOMATED 204 10^3/uL (150-450); RED BLOOD COUNT 4.67 10^6/uL (4.00-5.40); WHITE BLOOD COUNT 7.5 10^3/uL (4.0-10.0)
[2024-05-26 06:36] LABS: BLOOD UREA NITROGEN 12 MG/DL (9-23); CALCIUM LEVEL 8.1 MG/DL (8.3-10.6); CARBON DIOXIDE LEVEL 31 MMOL/L (20-31); CHLORIDE LEVEL 108 MMOL/L (98-107); CREATININE FOR GFR 0.61 MG/DL (0.55-1.30); GLOMERULAR FILTRATION RATE > 60.0 (>45); GLUCOSE, FASTING 285 MG/DL (74-106); POTASSIUM SERUM 4.8 MMOL/L (3.5-5.1); SODIUM LEVEL 142 MMOL/L (136-145)
[2024-05-26] MEDS ORDERED: MIRALAX *UNIT DOSE* 17GM PACKET PO PRN (07:50)
[2024-05-26] MEDS: SENOKOT S TAB PO SCH (08:21)
[2024-05-26 09:01] LABS: KETONE, URINE AUTO RFX 1+ mg/dL (NEGATIVE); MUCUS, URINE RFX SMALL (NEGATIVE); NITRITE, URINE AUTO RFX NEGATIVE (NEGATIVE); RBC, URINE AUTO RFX 20 /HPF (0-3); SQUAM EPITHELIAL CELL UR AURFX 3 /HPF (0-6); YEAST LIKE CELL URINE AUTO RFX MODERATE
[2024-05-26 09:13] LABS: LEUKOCYTE ESTERASE UR AUTO RFX 2+ (NEGATIVE); WBC, URINE AUTO RFX 25 /HPF (0-3)
[2024-05-26 12:00] VITALS: BP 99/65; TEMP 97.6; O2SAT 95
[2024-05-26] MEDS: LEVEMIR (INSULIN DETEMIR) 1 UNITS/0.01ML SC SCH (14:06)
[2024-05-26] MEDS: FLUCONAZOLE 50MG TABLET PO ONE (16:16)
[2024-05-26 19:05] LABS: APPEARANCE, URINE CLEAR (CLEAR); BACTERIA, URINE AUTO NEGATIVE (NEGATIVE); BILIRUBIN, URINE AUTO NEGATIVE (NEGATIVE); BLOOD, URINE BLOOD NEGATIVE (NEGATIVE); COLOR, URINE YELLOW (YELLOW); GLUCOSE, URINE (UA) AUTO 3+ mg/dL (NEGATIVE); KETONE, URINE AUTO 1+ mg/dL (NEGATIVE); LEUKOCYTE ESTERASE, URINE AUTO NEGATIVE (NEGATIVE); NITRITE, URINE AUTO NEGATIVE (NEGATIVE); PROTEIN, URINE AUTO NEGATIVE (NEGATIVE); RBC, URINE AUTO 2 /HPF (0-3); SPECIFIC GRAVITY URINE AUTO 1.038 (1.002-1.035); SQUAMOUS EPITHELIAL CELL UR AU 1 /HPF (0-6); UROBILINOGEN, URINE AUTO 0.2 mg/dL (0.0-2.0); WBC, URINE AUTO 3 /HPF (0-3)
[2024-05-26 20:00] VITALS: BP 127/56; TEMP 97.7; O2SAT 92
[2024-05-26] MEDS ORDERED: SODIUM CHLORIDE NASAL 0.65% SPRAY BTL (OCEAN) PRN (21:15)
[2024-05-26] MEDS: diphenhydrAMINE 50MG/ML VIAL IV ONE (22:15)
[2024-05-27 04:00] VITALS: BP 124/56; TEMP 98.1; O2SAT 94
[2024-05-27 09:32] LABS: BASO # 0.1 10^3/uL (0.0-0.2); BASO % 0.9 % (0.0-1.0); EOS # 0.3 10^3/uL (0.0-0.5); EOS % 3.4 % (0.0-3.0); HEMATOCRIT 40.2 % (36.0-47.0); HEMOGLOBIN 12.1 g/dl (12.0-15.5); LYMPH # 1.5 10^3/uL (1.5-5.0); MEAN CORPUSCULAR HEMOGLOBIN 25.4 pg (27.0-33.0); MEAN CORPUSCULAR HGB CONC 30.1 g/dl (32.0-36.5); MEAN CORPUSCULAR VOLUME 84.3 fl (80.0-96.0); MONO # 0.8 10^3/uL (0.0-0.8); MONO % 8.2 % (2.0-8.0); NEUTROPHILS # 6.4 10^3/uL (1.5-8.5); NEUTROPHILS % 66.6 % (36.0-66.0); PLATELET COUNT, AUTOMATED 190 10^3/uL (150-450); RED BLOOD COUNT 4.77 10^6/uL (4.00-5.40); WHITE BLOOD COUNT 9.6 10^3/uL (4.0-10.0)
[2024-05-27 10:00] LABS: BLOOD UREA NITROGEN 11 MG/DL (9-23); CALCIUM LEVEL 7.9 MG/DL (8.3-10.6); CARBON DIOXIDE LEVEL 28 MMOL/L (20-31); CHLORIDE LEVEL 104 MMOL/L (98-107); CREATININE FOR GFR 0.47 MG/DL (0.55-1.30); GLOMERULAR FILTRATION RATE > 60.0 (>45); GLUCOSE, FASTING 269 MG/DL (74-106); MAGNESIUM LEVEL 1.7 MG/DL (1.8-2.4); POTASSIUM SERUM 4.5 MMOL/L (3.5-5.1); SODIUM LEVEL 139 MMOL/L (136-145)
[2024-05-27] MEDS: MOM 30ML SUSPENSION UDC PO PRN (10:33)
[2024-05-27 12:00] VITALS: BP 117/64; TEMP 97.7; O2SAT 95
[2024-05-27] MEDS: MAG SULF 1GM/100ML (MAG RUN) 1 GM in IV 1 EA IV SCH (12:07)
[2024-05-27] MEDS: LEVEMIR (INSULIN DETEMIR) 1 UNITS/0.01ML SC SCH (13:38)
[2024-05-27] MEDS: methocarbamoL 750 MG TAB PO SCH (17:38)
[2024-05-27] MEDS: ACETAMINOPHEN 500 MG TAB PO SCH (17:39)
[2024-05-27 20:28] VITALS: BP 118/54; TEMP 97.7; O2SAT 92
[2024-05-27] MEDS: LEVALBUTEROL 1.25MG 0.5ML CONCENTRATE NEB INH PRN (23:31)
[2024-05-28 04:41] VITALS: BP 124/65; TEMP 97.7; O2SAT 92
[2024-05-28 08:24] LABS: BASO # 0.1 10^3/uL (0.0-0.2); BASO % 1.1 % (0.0-1.0); EOS # 0.6 10^3/uL (0.0-0.5); EOS % 6.2 % (0.0-3.0); HEMATOCRIT 39.1 % (36.0-47.0); HEMOGLOBIN 11.8 g/dl (12.0-15.5); LYMPH # 1.4 10^3/uL (1.5-5.0); LYMPH % 15.5 % (24.0-44.0); MEAN CORPUSCULAR HEMOGLOBIN 25.5 pg (27.0-33.0); MEAN CORPUSCULAR HGB CONC 30.2 g/dl (32.0-36.5); MEAN CORPUSCULAR VOLUME 84.6 fl (80.0-96.0); MONO # 0.8 10^3/uL (0.0-0.8); MONO % 8.5 % (2.0-8.0); NEUTROPHILS # 5.7 10^3/uL (1.5-8.5); NEUTROPHILS % 64.3 % (36.0-66.0); PLATELET COUNT, AUTOMATED 210 10^3/uL (150-450); RED BLOOD COUNT 4.62 10^6/uL (4.00-5.40); WHITE BLOOD COUNT 8.9 10^3/uL (4.0-10.0)
[2024-05-28 08:53] LABS: BLOOD UREA NITROGEN 12 MG/DL (9-23); CARBON DIOXIDE LEVEL 31 MMOL/L (20-31); CHLORIDE LEVEL 103 MMOL/L (98-107); CREATININE FOR GFR 0.52 MG/DL (0.55-1.30); GLOMERULAR FILTRATION RATE > 60.0 (>45); GLUCOSE, FASTING 282 MG/DL (74-106); MAGNESIUM LEVEL 1.9 MG/DL (1.8-2.4); POTASSIUM SERUM 5.1 MMOL/L (3.5-5.1); SODIUM LEVEL 142 MMOL/L (136-145)
[2024-05-28] MEDS: ENOXAPARIN 40MG/0.4ML SYRINGE (J1650 PER 10MG) SC SCH (08:57)
[2024-05-28] MEDS: FUROSEMIDE 40 MG TAB PO SCH (09:00)
[2024-05-28] MEDS: traMADol 50 MG TAB PO PRN (09:03)
[2024-05-28] MEDS: BISACODYL 10MG SUPP PR ONE (11:05)
[2024-05-28] MEDS: MIRALAX *UNIT DOSE* 17GM PACKET PO SCH (12:10)
[2024-05-28] MEDS ORDERED: BISACODYL 10MG SUPP PR PRN (14:20)
[2024-05-28 14:26] VITALS: BP 121/49; TEMP 97.8; O2SAT 91
[2024-05-28] MEDS: LEVEMIR (INSULIN DETEMIR) 1 UNITS/0.01ML SC SCH (20:16)
[2024-05-28] MEDS: MAGNESIUM OXIDE 400MG TAB (MAG-OX) PO SCH (20:17)
[2024-05-28] MEDS: METOPROLOL SUCC *XL* 25MG TAB (TopROL *XL*) PO SCH (20:18)
[2024-05-29 04:00] VITALS: BP 124/65; TEMP 97.3; O2SAT 95
[2024-05-29] MEDS: ONDANSETRON 4MG TAB PO PRN (10:26)
[2024-05-29] MEDS: DEXTROMETHORPHAN 60MG/10ML SUSP 90ML BTL(DELSYM) PO PRN (23:20)
[2024-05-30 01:33] LABS: BASO # 0.1 10^3/uL (0.0-0.2); BASO % 0.9 % (0.0-1.0); EOS # 0.5 10^3/uL (0.0-0.5); EOS % 6.5 % (0.0-3.0); HEMATOCRIT 38.8 % (36.0-47.0); HEMOGLOBIN 11.7 g/dl (12.0-15.5); LYMPH # 1.6 10^3/uL (1.5-5.0); MEAN CORPUSCULAR HEMOGLOBIN 25.7 pg (27.0-33.0); MEAN CORPUSCULAR HGB CONC 30.2 g/dl (32.0-36.5); MEAN CORPUSCULAR VOLUME 85.3 fl (80.0-96.0); MONO # 0.6 10^3/uL (0.0-0.8); MONO % 7.9 % (2.0-8.0); NEUTROPHILS # 4.6 10^3/uL (1.5-8.5); NEUTROPHILS % 59.3 % (36.0-66.0); PLATELET COUNT, AUTOMATED 229 10^3/uL (150-450); RED BLOOD COUNT 4.55 10^6/uL (4.00-5.40); WHITE BLOOD COUNT 7.7 10^3/uL (4.0-10.0)
[2024-05-30 01:53] LABS: ALKALINE PHOSPHATASE 70 U/L (35-104); ALT/SGPT 21 U/L (7.0-40); AST/SGOT 15 U/L (<34); BILIRUBIN,TOTAL 0.2 MG/DL (0.3-1.2); BLOOD UREA NITROGEN 14 MG/DL (9-23); CARBON DIOXIDE LEVEL 30 MMOL/L (20-31); CHLORIDE LEVEL 102 MMOL/L (98-107); CREATININE FOR GFR 0.56 MG/DL (0.55-1.30); GLOMERULAR FILTRATION RATE > 60.0 (>45); GLUCOSE, FASTING 396 MG/DL (74-106); MAGNESIUM LEVEL 1.7 MG/DL (1.8-2.4); SODIUM LEVEL 140 MMOL/L (136-145); TOTAL PROTEIN 5.8 G/DL (5.7-8.2)
[2024-05-30 04:09] VITALS: BP 126/80; TEMP 97.5; O2SAT 94
[2024-05-30] MEDS: MECLIZINE 25 MG TABLET PO PRN (06:19)
[2024-05-30] MEDS: predniSONE 20 MG TAB PO SCH (09:39)
[2024-05-30] MEDS: AZITHROMYCIN 250MG TABLET PO SCH (13:08)
[2024-05-30] MEDS: IPRATROPIUM 0.5MG/ALBUTEROL 2.5MG INH SOL UD 3ML (DUONEB) NEB SCH (14:00)
[2024-05-30] MEDS: HumuLIN (NovoLIN)70/30 INSULIN INJ PER UNIT SC SCH (17:58)
[2024-05-30] MEDS: CEFUROXIME 500 MG TAB PO SCH (20:35)
[2024-05-30] MEDS: MAGNESIUM OXIDE 400MG TAB (MAG-OX) PO SCH (20:39)
[2024-05-31 04:00] VITALS: BP 128/58; TEMP 97.7; O2SAT 98
[2024-05-31] MEDS: HumuLIN (NovoLIN)70/30 INSULIN INJ PER UNIT SC SCH (08:25)
[2024-05-31] MEDS ORDERED: MIRA3350 PO (10:26)
[2024-05-31] MEDS ORDERED: SENN-122 PO (10:26)
[2024-05-31] MEDS ORDERED: METO1TAB32 PO (10:26)
[2024-05-31] MEDS ORDERED: CEFU50TA PO (10:26)
[2024-05-31] MEDS ORDERED: AZIT500T5 PO (10:26)
[2024-05-31] MEDS ORDERED: PRED20TA PO (10:26)
[2024-05-31 20:21] VITALS: BP 128/58
[2024-06-01 04:19] VITALS: BP 144/70; TEMP 97.3; O2SAT 95
== END 2024-06-01 12:00 | disposition home health service (06) | DRG 551 ==
LOC: M ED 16:15 → EDBD 16:15 → M ED INP 05-25 01:55 → M MS5PR 05-25 03:25
PROVIDERS: ADMIT Student in an Organized Health Care Education/Training Program; ATTEND Internal Medicine
DX: M54.9 Dorsalgia, unspecified (principal); J18.9 Pneumonia, unspecified organism; J96.11 Chronic respiratory failure with hypoxia; I50.32 Chronic diastolic (congestive) heart failure; Z68.44 Body mass index [BMI] 60.0-69.9, adult; J44.1 Chronic obstructive pulmonary disease with (acute) exacerbation; E66.2 Morbid (severe) obesity with alveolar hypoventilation; J44.0 Chronic obstructive pulmonary disease with (acute) lower respiratory infection; E66.813 Obesity, class 3; S32.10XS Unspecified fracture of sacrum, sequela; E11.43 Type 2 diabetes mellitus with diabetic autonomic (poly)neuropathy; Z99.81 Dependence on supplemental oxygen; R26.89 Other abnormalities of gait and mobility; W01.0XXA Fall on same level from slipping, tripping and stumbling without subsequent striking against object, initial encounter; Y92.002 Bathroom of unspecified non-institutional (private) residence as the place of occurrence of the external cause; S00.93XA Contusion of unspecified part of head, initial encounter; K31.84 Gastroparesis; E83.42 Hypomagnesemia; E11.65 Type 2 diabetes mellitus with hyperglycemia; E78.5 Hyperlipidemia, unspecified; I11.0 Hypertensive heart disease with heart failure; M19.90 Unspecified osteoarthritis, unspecified site; E11.42 Type 2 diabetes mellitus with diabetic polyneuropathy; F43.10 Post-traumatic stress disorder, unspecified; H81.10 Benign paroxysmal vertigo, unspecified ear; K21.9 Gastro-esophageal reflux disease without esophagitis; M41.9 Scoliosis, unspecified; G43.909 Migraine, unspecified, not intractable, without status migrainosus; Z96.642 Presence of left artificial hip joint; Z90.79 Acquired absence of other genital organ(s); Z90.49 Acquired absence of other specified parts of digestive tract; Z79.4 Long term (current) use of insulin; Z79.899 Other long term (current) drug therapy; Z88.0 Allergy status to penicillin; Z88.1 Allergy status to other antibiotic agents; Z88.8 Allergy status to other drugs, medicaments and biological substances; Z91.013 Allergy to seafood

== ENCOUNTER → 2024-07-16 | Outpatient (CLI) | payer MEDICARE, MEDICAID ==
[~2024-07-16] MED LIST changes: +AZIT500T5 PO; +BUDE2SUS3 INH; +CEFU50TA PO; +CLIN1LOT TOP; +EQL0.65S NARES; +HUMU70IN SC; +KP F1200 PO; +L-AR1000 PO; +LEVA1.2526 INH; +LIDO5DIS41 TOP; +MAGN100T PO; +METO1TAB32 PO; +MIRA3350 PO; +PRED20TA PO; +SENN-122 PO; +THERTAB52 PO
[2024-07-16 15:03] LABS: BASO # 0.1 10^3/uL (0.0-0.2); BASO % 0.8 % (0.0-1.0); EOS # 0.4 10^3/uL (0.0-0.5); EOS % 3.4 % (0.0-3.0); HEMATOCRIT 43.1 % (36.0-47.0); HEMOGLOBIN 13.1 g/dl (12.0-15.5); LYMPH # 2.4 10^3/uL (1.5-5.0); LYMPH % 22.4 % (24.0-44.0); MEAN CORPUSCULAR HEMOGLOBIN 25.9 pg (27.0-33.0); MEAN CORPUSCULAR HGB CONC 30.4 g/dl (32.0-36.5); MEAN CORPUSCULAR VOLUME 85.3 fl (80.0-96.0); MONO # 0.7 10^3/uL (0.0-0.8); MONO % 6.9 % (2.0-8.0); NEUTROPHILS # 6.9 10^3/uL (1.5-8.5); NEUTROPHILS % 64.3 % (36.0-66.0); PLATELET COUNT, AUTOMATED 285 10^3/uL (150-450); RED BLOOD COUNT 5.05 10^6/uL (4.00-5.40); WHITE BLOOD COUNT 10.6 10^3/uL (4.0-10.0)
[2024-07-16 15:47] LABS: ALBUMIN 3.2 G/DL (3.2-5.2); ALKALINE PHOSPHATASE 76 U/L (35-104); ALT/SGPT 22 U/L (7.0-40); AST/SGOT 14 U/L (<34); BILIRUBIN,TOTAL 0.3 MG/DL (0.3-1.2); BLOOD UREA NITROGEN 25 MG/DL (9-23); CARBON DIOXIDE LEVEL 27 MMOL/L (20-31); CHLORIDE LEVEL 107 MMOL/L (98-107); CHOLESTEROL LEVEL 135 MG/DL (<200); CHOLESTEROL RISK RATIO 2.71 (<5); CREATININE FOR GFR 0.63 MG/DL (0.55-1.30); GLOMERULAR FILTRATION RATE > 60.0 (>45); GLUCOSE, FASTING 121 MG/DL (74-106); HDL CHOLESTEROL 49.7 MG/DL (>40); LDL CHOLESTEROL 63.1 MG/DL (<100); NON-HDL-C 85.3 MG/DL; POTASSIUM SERUM 4.9 MMOL/L (3.5-5.1); SODIUM LEVEL 146 MMOL/L (136-145); TOTAL PROTEIN 7.5 G/DL (5.7-8.2); TRIGLYCERIDES LEVEL 111 MG/DL (<150)
== END ==
LOC: M WUC 13:28
PROVIDERS: ATTEND Registered Nurse
DX: J18.9 Pneumonia, unspecified organism (principal); E78.2 Mixed hyperlipidemia

== ENCOUNTER → 2024-07-16 | Outpatient (CLI) | payer MEDICARE, MEDICAID ==
[2024-07-16 15:46] LABS: CREATININE, URINE 65.8 MG/DL; MAU/CREAT RATIO 10.6 MCG/MG (0.0-30.0)
[2024-07-16 15:47] LABS: ALBUMIN 3.2 G/DL (3.2-5.2); ALKALINE PHOSPHATASE 77 U/L (35-104); ALT/SGPT 23 U/L (7.0-40); AST/SGOT 14 U/L (<34); BILIRUBIN,TOTAL 0.3 MG/DL (0.3-1.2); BLOOD UREA NITROGEN 26 MG/DL (9-23); CALCIUM LEVEL 9.3 MG/DL (8.3-10.6); CARBON DIOXIDE LEVEL 27 MMOL/L (20-31); CHLORIDE LEVEL 107 MMOL/L (98-107); CHOLESTEROL LEVEL 137 MG/DL (<200); CHOLESTEROL RISK RATIO 2.64 (<5); CREATININE FOR GFR 0.64 MG/DL (0.55-1.30); GLOMERULAR FILTRATION RATE > 60.0 (>45); GLUCOSE, FASTING 124 MG/DL (74-106); HDL CHOLESTEROL 51.8 MG/DL (>40); LDL CHOLESTEROL 62.2 MG/DL (<100); NON-HDL-C 85.2 MG/DL; POTASSIUM SERUM 4.8 MMOL/L (3.5-5.1); SODIUM LEVEL 143 MMOL/L (136-145); TOTAL PROTEIN 7.5 G/DL (5.7-8.2); TRIGLYCERIDES LEVEL 115 MG/DL (<150)
== END ==
LOC: M WUC 13:24
PROVIDERS: ATTEND Nurse Practitioner Family
DX: E11.65 Type 2 diabetes mellitus with hyperglycemia (principal)

== ENCOUNTER → 2024-09-08 | Outpatient (CLI) | payer MEDICARE, MEDICAID ==
[~2024-09-08] MED LIST changes: +LIDO1ADH93 TOP; -LIDO5DIS41 TOP
== END ==
LOC: M WHC 10:37
PROVIDERS: ATTEND Registered Nurse
DX: E04.1 Nontoxic single thyroid nodule (principal)